=== PATIENT | female | born 1940 | race Caucasian/White ===

== ENCOUNTER 2017-06-09 12:13 | Outpatient (RCR) | payer OTHER | END 2017-07-04 | LOC: M CR 12:13 | DX: Z95.4 Presence of other heart-valve replacement (principal) | CPT/HCPCS: 93798 ==

== ENCOUNTER 2017-07-06 09:23 | Outpatient (RCR) | payer OTHER | END 2017-08-04 | LOC: M CR 09:23 | DX: Z95.4 Presence of other heart-valve replacement (principal) | CPT/HCPCS: 93798 ==

== ENCOUNTER 2017-07-16 13:07 | Outpatient (RCR) | payer SELFPAY | END 2017-08-04 | LOC: M CR 13:07 | DX: Z95.4 Presence of other heart-valve replacement (principal) | CPT/HCPCS: 93797 ==

== ENCOUNTER 2018-05-02 12:26 | Outpatient (RCR) | payer OTHER | END 2018-05-04 | LOC: M OT 12:26 | DX: I50.9 Heart failure, unspecified (principal) | CPT/HCPCS: 97530 ==